=== PATIENT | male | born 1990 | race Hispanic/Latino ===

== ENCOUNTER → 2018-08-05 15:00 | Outpatient (CLI) | payer BC, SELFPAY ==
--- NOTE | 2018-08-05 15:05 | DI.RAD.S_ITS ---
PROCEDURE: XR RIBS LT MIN 3V W CXR1V INDICATIONS: Fall on L lateral shoulder, L inferior ribs, R medial knee TECHNIQUE: 2 views of the left ribs were acquired, along with a single view chest. COMPARISON: None. FINDINGS: Surgical changes and devices: None. Bones and chest wall: No fractures or dislocations. No suspicious bony lesions. Overlying soft tissues appear unremarkable. Lungs and pleura: No pleural effusions or pneumothorax. Lungs appear clear. Mediastinum: Mediastinal contours appear normal. Heart size is normal. IMPRESSION: No definite acute displaced left rib fracture. No acute cardiopulmonary pathology. Dictated by: Semaj Waters M.D. on 08/05/2018 at 15:46 Approved by: Semaj Waters M.D. on 08/05/2018 at 15:48
--- NOTE | 2018-08-05 15:05 | DI.RAD.S_ITS ---
PROCEDURE: XR KNEE RT 3V INDICATIONS: Fall on L lateral shoulder, L inferior ribs, R medial knee TECHNIQUE: 3 views of the knee were acquired. COMPARISON: None. FINDINGS: Bones: No fractures or dislocations. No suspicious bony lesions. Soft tissues: There is a small suprapatellar joint effusion No suspicious soft tissue calcifications. IMPRESSION: Small joint effusion. No acute fracture or dislocation. Dictated by: Semaj Waters M.D. on 08/05/2018 at 15:46 Approved by: Semaj Waters M.D. on 08/05/2018 at 15:46
--- NOTE | 2018-08-05 15:05 | DI.RAD.S_ITS ---
PROCEDURE: XR SHOULDER LT MIN 2V INDICATIONS: Fall on L lateral shoulder, L inferior ribs, R medial knee TECHNIQUE: 3 views of the shoulder were acquired. COMPARISON: None. FINDINGS: Bones: No fractures or dislocations. No suspicious bony lesions. Visualized ribs appear intact. Soft tissues: No suspicious soft tissue calcifications. IMPRESSION: No gross acute left shoulder fracture or dislocation. Dictated by: Semaj Waters M.D. on 08/05/2018 at 15:48 Approved by: Semaj Waters M.D. on 08/05/2018 at 15:48
== END ==
PROVIDERS: Visit Provider Physician Assistant
DX: S89.91XA Unspecified injury of right lower leg, initial encounter (principal); S49.92XA Unspecified injury of left shoulder and upper arm, initial encounter; S29.9XXA Unspecified injury of thorax, initial encounter; W00.0XXA Fall on same level due to ice and snow, initial encounter; M25.461 Effusion, right knee
CPT/HCPCS: 71101; 73030; 73562